=== PATIENT | female | born 1985 | race Caucasian/White ===

== ENCOUNTER 2018-08-20 21:33 | Emergency (ER) | payer MEDICAID ==
[~2018-08-20] VITALS: Ht 162.6 cm; Wt 95.3 kg
[~2018-08-20 21:33] MED LIST: ADVIL
[2018-08-20 21:45] VITALS: BP 122/77
--- NOTE | 2018-08-21 00:21 | NUR ---
PT AMBULATED TO BED 06.
--- NOTE | 2018-08-21 01:08 | NUR ---
32/F PRESENTS TO ED, C/O 10/10 SHARP LOWER BACK PAIN, RADIATING TO SUPRAPUBIC, X1 DAY. PT DENIES TRAUMA/INJURY, FEVER, N/V/D, CONSTIPATION OR DYSURIA. PT AOX4, GCS 15, RR EVEN AND UNLABORED. HX GESTATIONAL DM
--- NOTE | 2018-08-21 02:53 | NUR ---
PT LAYING IN BED, RR EVEN AND UNLABORED. VSS. REPORTS 10/10 LOWER BACK PAIN, RADIATING TO SUPRAPUBIC. ER MD MADE AWARE.
[2018-08-21] MEDS ORDERED: KETOROLAC 60 MG/2 ML VIAL IM ONE (03:00)
--- NOTE | 2018-08-21 03:00 | NUR ---
Dr. Bobo evaluating patient at bedside.
--- NOTE | 2018-08-21 03:33 | NUR ---
PT TO BE GIVEN RX NORCO AND MOTRIN. PT ASKED IF SHE CAN BREASTFEED WHILE TAKING NORCO OR MOTRIN. ER MD MADE AWARE. PER ER MD, PT CAN USE NORCO BUT MUST THROW AWAY BREASTMILK AFTER. [employer]EVIN [employer] TO EDUCATE PT. PT VERBALIZED UNDERSTANDING.
[2018-08-21 03:37] VITALS: BP 120/69
== END 2018-08-21 03:37 | disposition home or self-care (01) ==
LOC: MED 21:33
DX: M54.5 Low back pain (principal); Z79.899 Other long term (current) drug therapy
CPT/HCPCS: 81002; 81025; 96372; 99283; J1885